=== PATIENT | male | born 1945 | race Caucasian/White ===

== ENCOUNTER 2024-10-15 14:30 | Emergency (ER) | payer MEDICARE, SELFPAY ==
--- NOTE | ~2024-10-15 | CT_ITS ---
EXAMINATION: CT cervical spine wo con DATE: 10/15/2024 15:53 INDICATION: Head injury. Neck pain. TECHNIQUE: Computed tomography (CT) of the cervical spine was performed without intravenous contrast. Automated exposure control and iterative reconstruction technique were employed. The dose-length pro duct was 411.07 mGy-cm. COMPARISON: None FINDINGS: There is 7 degrees levocurvature of cervical spine. There is mild chronic anterior wedging of C7 on T1 vertebral bodies. There is severely decreased disc height at C3-C4, moderately decreased disc height at C4-C5, and severely decreased disc height at C5-C6, C6-C7, and C7-T1. The following di sc levels are specifically discussed: C2-C3: There is moderate right and mild left uncovertebral joint osteoarthritis. There is severe righ t and mild left facet joint osteoarthritis. There is mild right neural foraminal stenosis. There is n o central canal stenosis. C3-C4: There is ankylosis of the uncovertebral joints with severe right hypertrophy and moderate left hypertrophy. There is moderate left facet joint osteoarthritis. There is ankylosis of right facet january int with moderate hypertrophy. There is mild bilateral neural foraminal stenosis. There is mild centr al canal stenosis. C4-C5: There is mild bilateral uncovertebral joint osteoarthritis. There is moderate bilateral facet joint osteoarthritis. There is mild bilateral neural foraminal stenosis. There is mild central canal stenosis. C5-C6: There is severe bilateral uncovertebral joint osteoarthritis. There is moderate right and mild left facet joint osteoarthritis. There is mild bilateral neural foraminal stenosis. There is mild ce ntral canal stenosis. C6-C7: There is mild bilateral uncovertebral joint osteoarthritis. There is mild bilateral facet join t osteoarthritis. There is no neural foraminal stenosis. There is mild central canal stenosis. C7-T1: There is severe bilateral uncovertebral joint osteoarthritis. There is severe bilateral facet joint osteoarthritis. There is mild bilateral neural foraminal stenosis. There is mild central canal stenosis. IMPRESSION: 1. No fracture. 2. Severe cervical spondylosis. Reviewed, dictated and finalized at location A. EKEEPER NANNY
--- NOTE | ~2024-10-15 | XR_ITS ---
EXAMINATION: XR shoulder RT min 2V DATE: 10/15/2024 15:53 INDICATION: Right shoulder pain. Fall. TECHNIQUE: 3 views of right shoulder were obtained. COMPARISON: None. FINDINGS: Alignment is normal. No fracture. There is mild osteoarthritis of glenohumeral joint and ac romioclavicular joint. IMPRESSION: 1. Mild polyarticular osteoarthritis. Reviewed, dictated and finalized at location A. T ADVOCATE
--- NOTE | ~2024-10-15 | XR_ITS ---
EXAMINATION: XR chest 2V DATE: 10/15/2024 15:53 INDICATION: Fall. Weakness. TECHNIQUE: Frontal and lateral views of the chest were obtained. COMPARISON: None. FINDINGS: There are airspace opacities in the lower lung zones. No pleural effusion or pneumothorax. The heart size is normal. IMPRESSION: 1. Airspace opacities in the lower lung zones, consistent with atelectasis/scarring versus pneumonia. Reviewed, dictated and finalized at location A. IC FINISHER IMPRESSION: 1. Airspace opacities in the lower lung zones, consistent with atelectasis/scar ring versus pneumonia.
--- NOTE | ~2024-10-15 | CT_ITS ---
EXAMINATION: CT brain wo con DATE: 10/15/2024 15:53 INDICATION: Head injury. TECHNIQUE: Computed tomography (CT) of the head was performed without intravenous contrast. The mA wa s adjusted according to patient size. Iterative reconstruction technique was employed. The dose-lengt h product was 681.00 mGy-cm. COMPARISON: None FINDINGS: There are old infarcts in the left basal ganglia. There are scattered areas of low attenuat ion in the cerebral white matter, which is within normal limits for the patient's age. There is no in tracranial hemorrhage, acute infarction, or abnormal intracranial mass lesion. The ventricles are nor mal in size. There are likely changes of ocular lens replacement surgeries. There is mucosal thickeni ng in the paranasal sinuses. There is a small left mastoid effusion. IMPRESSION: 1. 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 Reviewed, dictated and finalized at location A. NSIC SPECIALIST
--- NOTE | 2024-10-15 14:32 | ED_ITS ---
HPI - Syncope General Chief Complaint: Syncope Stated Complaint: SYNCOPAL EPISODE Time Seen by Provider: 10/15/24 14:32 Source: patient Mode of arrival: EMS Limitations: no limitations History of Present Illness HPI narrative: Patient is an 79-year-old male with dizziness and syncope prior to arrival. He was picked up by EMS and brought to the emergency room. Patient has chronic dizziness but it appeared worse today and he passed out. He was down for 30 seconds. He sustained injuries to his right shoulder and his scalp right frontal. He is on Xarelto. 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 and they are monitoring the left; this was 6 months ago) and other ( chronic dizziness) Treatments prior to arrival: none Related Data Home Medications Medication Instructions Recorded Confirmed amiodarone 100 mg tablet 100 mg PO DAILY 10/15/24 10/15/24 amlodipine 10 mg tablet 10 mg PO DAILY 10/15/24 10/15/24 atenolol 100 mg tablet 100 mg PO DAILY 10/15/24 10/15/24 finasteride 5 mg tablet 5 mg PO DAILY 10/15/24 10/15/24 losartan 100 mg tablet 100 mg PO DAILY 10/15/24 10/15/24 omeprazole 20 mg capsule,delayed 20 mg PO DAILY 10/15/24 10/15/24 release pravastatin 80 mg tablet 80 mg PO HS 10/15/24 10/15/24 rivaroxaban 20 mg tablet (Xarelto) 20 mg PO DAILY 10/15/24 10/15/24 spironolactone 25 mg tablet 12.5 mg PO DAILY 10/15/24 10/15/24 tamsulosin 0.4 mg capsule 0.4 mg PO DAILY 10/15/24 10/15/24 Allergies Allergy/AdvReac Type Severity Reaction Status Date / Time No Known Allergies Allergy Verified 10/15/24 15:08 Review of Systems Review of Systems: All systems reviewed & are unremarkable except as noted in HPI and below Constitutional: Constitutional: Reports no additional constitutional complaints Eyes: Eyes: Reports no additional eye complaints ENT: Reports system reviewed and no additional complaints, except as documented Cardiovascular: Cardiovascular: Reports no additional cardiovascular complaints Respiratory: Respiratory: Reports no additional respiratory complaints Gastrointestinal: Gastrointestinal: Reports no additional gastrointestinal complaints Genitourinary: Genitourinary: Reports no additional male genitourinary complaints Musculoskeletal: Musculoskeletal: Reports no additional musculoskeletal complaints Integumentary/Breasts: Skin/Breast: Reports system reviewed and no additional complaints, except as docu Neurologic: Reports system reviewed and no additional complaints, except as documented Psychiatric: Psychiatric: Reports no additional psychiatric complaints Endocrine: Endocrine: Reports no additional endocrine complaints Hematologic/Lymphatic: Hematologic/Lymphatic: Reports no additional hematologic/lymphatic complaints Allergic/Immunologic: Allergic/Immunologic: Reports no additional allergic/immunologic complaints Exam Const: General: healthy appearing Nutritional Appearance: well nourished Orientation/consciousness: patient oriented x3 Limitations: no limitations HENMT: Head: normal to inspection Ears: external ears normal Face/Nose/Sinus: Normal external nose present Eyes: Conjunctivae: conjunctivae normal Pupils: Equal, round and reactive pupils present EOM: EOMs intact bilaterally Neck: Neck: normal visual inspection Chest: Chest palpation & inspection: normal inspection of the chest Resp: Effort & Inspection: normal respiratory effort and not labored Auscultation: clear to auscultation bilaterally Cardio: Rate: regular rate Rhythm: regular rhythm Heart sounds: no murmurs GI: Inspection: non-distended GI Palp: Yes Soft to palpation and No Tenderness to palpation present (GI) Auscultation: normal bowel sounds : General: Yes bladder normal to palpation Back/Spine/Pelvis: Back: no CVA tenderness Skin: General skin exam: normal color Rashes: no rashes Wounds: wound noted Other: right frontal scalp has a superficial abrasion with bleeding that has stopped but dry now Neuro: General: patient oriented x3 Cranial nerves: Yes Nystagmus not present Speech: normal speech Gait exam (Neuro): Normal gait present Other: Fast exam is negative, GCS is 15, NIH is 0 Extrem: General: normal to inspection Other: tender right shoulder to palpation and range of motion Psych: Mental Status: mental status grossly normal Affect: normal affect Attitude: cooperative Course Vital Signs Vital signs: Vital Signs Temperature 36.6 C 10/15/24 14:52 Pulse Rate 53 L 10/15/24 14:52 Respiratory Rate 20 10/15/24 14:52 Blood Pressure 153/78 H 10/15/24 14:52 Pulse Oximetry 98 10/15/24 14:52 Oxygen Delivery Room Air 10/15/24 14:52 Temperature 36.5 C 10/15/24 18:54 Pulse Rate 60 10/15/24 18:54 Respiratory Rate 20 10/15/24 18:54 Blood Pressure 121/60 10/15/24 18:54 Pulse Oximetry 100 10/15/24 18:54 Oxygen Delivery Room Air 10/15/24 18:54 MDM - Syncope MDM Narrative Medical decision making narrative: patient is a 79-year-old male with dizziness and then the syncope. We will do a cardiac/ neurologic workup at this time. He probably needs a repeat carotid ultrasound soon. Workup shows dehydration and anemia. We will proceed with transferring to [facility] for GI workup. His stool study was positive for blood. His right shoulder is still causing pain and we discussed MRI as an outpatient for possible rotator cuff injury. X-ray was negative for acute pr ocess. Lab Data Attestation: I reviewed the patient's lab results. 10/15/24 18:43 10/15/24 16:05 Labs: Lab Results 10/15/24 10/15/24 10/15/24 Range/Units 16:05 16:52 17:48 WBC 8.7 (4.8-10.8) K/mm3 RBC 3.82 L (4.70-6.10) M/mm3 Hgb 8.7 L (12.4-15.3) g/dL Hct 28.0 L (37.0-46.0) % MCV 73.3 L (78.0-102.0) fL MCH 22.8 L (27.0-31.0) pg MCHC 31.1 L (32-36) g/dL RDW 15.8 H (11.6-14.4) % Plt Count 295 (150-420) K/mm3 MPV 9.4 (8.7-11.0) fl Immature Gran % (Auto) 0.3 H (0.0-0.0) % Neut % (Auto) 57.6 (50.0-70.0) % Lymph % (Auto) 22.5 (18.0-42.0) % Bailey % (Auto) 9.4 (2.0-11.0) % Eos % (Auto) 9.5 H (1.0-6.0) % Baso % (Auto) 0.7 (0.0-1.0) % Lymph # (Auto) 1.96 (1.10-4.50) K/mm3 Bailey # (Auto) 0.82 (0.10-0.90) K/mm3 Eos # (Auto) 0.83 H (0.02-0.50) K/mm3 Baso # (Auto) 0.06 (0.00-0.10) K/mm3 Abs Immat Gran (auto) 0.03 H (0.00-0.00) K/mm3 Absolute Neuts (auto) 5.02 (1.70-7.20) K/mm3 Absolute Nucleated RBC 0.00 (0.00-0.00) K/mm3 Nucleated RBC % 0.0 (0-0.0) % D-Dimer 0.33 (0.19-0.50) mg/L Sodium 131 L (136-145) mmol/L Potassium 5.1 (3.5-5.1) mmol/L Chloride 99 (98-108) mmol/L Carbon Dioxide 22 (21-32) mmol/L Anion Gap 10 (4-12) mmol/L BUN 36 H (7-18) mg/dL Creatinine 1.64 H (0.70-1.30) mg/dL Estim Creat Clear Calc 39 ml/min Estimated GFR 41 L (59 - ) Glucose 110 H (70-99) mg/dL Calculated Osmolality 281 L (285-295) mOsm/kg Calcium 9.0 (8.5-10.1) mg/dL Total Bilirubin 0.3 (0.00-1.00) mg/dL AST 12 L (15-37) U/L ALT 20 (16-63) U/L Alkaline Phosphatase 53 (46-116) U/L Troponin I 9.2 (0.00-60.4) ng/L Total Protein 7.4 (6.4-8.2) g/dL Albumin 3.4 (3.4-5.0) g/dL Urine Color Light yellow (Yellow) Urine Appearance Clear (Clear) Urine pH 5.5 (5.0-8.0) Ur Specific [place] 1.015 (1.010-1.020) Urine Protein Negative (Negative) Urine Glucose (UA) Negative (Negative) Urine Ketones Negative (Negative) Ur Blood (Man) Negative (Negative) Urine Nitrate Negative (Negative) Urine Bilirubin Negative (Negative) Urine Urobilinogen 0.2 (0.2-1.0) mg/dL Leukocyte Esterase Rfl Negative (Negative) MARIA M/UL Stool Occult Blood Positive A (Negative) 10/15/24 Range/Units 18:43 WBC 8.4 (4.8-10.8) K/mm3 RBC 3.52 L (4.70-6.10) M/mm3 Hgb 8.0 L (12.4-15.3) g/dL Hct 25.7 L (37.0-46.0) % MCV 73.0 L (78.0-102.0) fL MCH 22.7 L (27.0-31.0) pg MCHC 31.1 L (32-36) g/dL RDW 15.8 H (11.6-14.4) % Plt Count 265 (150-420) K/mm3 MPV 9.3 (8.7-11.0) fl Immature Gran % (Auto) (0.0-0.0) % Neut % (Auto) (50.0-70.0) % Lymph % (Auto) (18.0-42.0) % Bailey % (Auto) (2.0-11.0) % Eos % (Auto) (1.0-6.0) % Baso % (Auto) (0.0-1.0) % Lymph # (Auto) (1.10-4.50) K/mm3 Bailey # (Auto) (0.10-0.90) K/mm3 Eos # (Auto) (0.02-0.50) K/mm3 Baso # (Auto) (0.00-0.10) K/mm3 Abs Immat Gran (auto) (0.00-0.00) K/mm3 Absolute Neuts (auto) (1.70-7.20) K/mm3 Absolute Nucleated RBC (0.00-0.00) K/mm3 Nucleated RBC % (0-0.0) % D-Dimer (0.19-0.50) mg/L Sodium (136-145) mmol/L Potassium (3.5-5.1) mmol/L Chloride (98-108) mmol/L Carbon Dioxide (21-32) mmol/L Anion Gap (4-12) mmol/L BUN (7-18) mg/dL Creatinine (0.70-1.30) mg/dL Estim Creat Clear Calc ml/min Estimated GFR (59 - ) Glucose (70-99) mg/dL Calculated Osmolality (285-295) mOsm/kg Calcium (8.5-10.1) mg/dL Total Bilirubin (0.00-1.00) mg/dL AST (15-37) U/L ALT (16-63) U/L Alkaline Phosphatase (46-116) U/L Troponin I (0.00-60.4) ng/L Total Protein (6.4-8.2) g/dL Albumin (3.4-5.0) g/dL Urine Color (Yellow) Urine Appearance (Clear) Urine pH (5.0-8.0) Ur Specific [place] (1.010-1.020) Urine Protein (Negative) Urine Glucose (UA) (Negative) Urine Ketones (Negative) Ur Blood (Man) (Negative) Urine Nitrate (Negative) Urine Bilirubin (Negative) Urine Urobilinogen (0.2-1.0) mg/dL Leukocyte Esterase Rfl (Negative) MARIA M/UL Stool Occult Blood (Negative) Imaging Data Attestation: I personally reviewed and interpreted this imaging study as follows: Radiologist's impression: CT scan of the head was negative for acute process CT scan of the cervical spine was negative for acute process x-ray of the right shoulder was negative for acute process chest x-ray was questionable for bilateral or lower lobe pneumonia versus atelectasis (patient has no symptoms of pneumonia such as shortness of breath or sputum or cough or fever ) ; this is more likely atelectasis ECG Data EKG #1: Attestation: I personally reviewed and interpreted this ECG as follows: ECG completion date: 10/15/24 ECG completion time: 16:40 EKG Interpretation: bradycardia, sinus rhythm, no ectopy, non-specific ST changes, normal QRS, normal QT and NL axis Discharge Plan Discharge Clinical Impression: GI (gastrointestinal bleed), Acute dehydration, Syncope Patient Disposition: Acute Care Hospital Condition: Serious Prescriptions: No Action atenolol 100 mg tablet 100 mg PO DAILY spironolactone 25 mg tablet 12.5 mg PO DAILY pravastatin 80 mg tablet 80 mg PO HS tamsulosin 0.4 mg capsule 0.4 mg PO DAILY amlodipine 10 mg tablet 10 mg PO DAILY omeprazole 20 mg capsule,delayed release(DR/EC) 20 mg PO DAILY losartan 100 mg tablet 100 mg PO DAILY finasteride 5 mg tablet 5 mg PO DAILY amiodarone 100 mg tablet 100 mg PO DAILY Xarelto 20 mg tablet 20 mg PO DAILY Follow-up/Referrals: Tim Harris MD [Primary Care Provider] - Time of Disposition: 19:38
[2024-10-15 14:52] VITALS: BP 153/78; PULSE 53; RESP 20; TEMP 36.6; O2SAT 98
[2024-10-15 15:00] VITALS: O2SAT 98
--- NOTE | 2024-10-15 15:55 | ECG_ITS ---
Test Date: 2024-10-15 16:12:12 Measurements Intervals [place] Rate: 55 P: 56 NH: 237 QRS: 59 QRSD: 101 T: 62 QT: 451 QTc: 434 Interpretive Statements SINUS BRADYCARDIA WITH FIRST DEGREE AV BLOCK No previous ECG available for comparison Electronically Signed On 10-18-2024 20:14:40 SENIOR AIR DIRECTOR by Maximilian Nazario M.D.
[2024-10-15 16:00] VITALS: BP 144/74; PULSE 58; RESP 20; O2SAT 98
[2024-10-15 16:08] LABS: Basophils Absolute Auto 0.06 K/mm3 (0.00-0.10); Basophils Percent Auto 0.7 % (0.0-1.0); Eosinophils Absolute Auto 0.83 K/mm3 (0.02-0.50); Eosinophils Percent Auto 9.5 % (1.0-6.0); Hemoglobin 8.7 g/dL (12.4-15.3); Immature Granulocyte Absolute 0.03 K/mm3 (0.00-0.00); Immature Granulocyte Percent A 0.3 % (0.0-0.0); Lymphocytes Absolute Auto 1.96 K/mm3 (1.10-4.50); Lymphocytes Percent Auto 22.5 % (18.0-42.0); Mean Corpuscular HGB Conc 31.1 g/dL (32-36); Mean Corpuscular Hemoglobin 22.8 pg (27.0-31.0); Mean Corpuscular Volume 73.3 fL (78.0-102.0); Mean Platelet Volume 9.4 fl (8.7-11.0); Monocytes Absolute Auto 0.82 K/mm3 (0.10-0.90); Monocytes Percent Auto 9.4 % (2.0-11.0); Neutrophils Absolute Auto 5.02 K/mm3 (1.70-7.20); Neutrophils Percent Auto 57.6 % (50.0-70.0); Platelet Count Result 295 K/mm3 (150-420); Red Blood Count 3.82 M/mm3 (4.70-6.10); Red Cell Distribution Width 15.8 % (11.6-14.4); White Blood Count 8.7 K/mm3 (4.8-10.8)
[2024-10-15 16:21] LABS: D Dimer 0.33 mg/L (0.19-0.50)
[2024-10-15 16:31] LABS: Alanine Aminotransferase 20 U/L (16-63); Albumin Level 3.4 g/dL (3.4-5.0); Alkaline Phosphatase 53 U/L (46-116); Anion Gap 10 mmol/L (4-12); Aspartate Amino Transferase 12 U/L (15-37); Bilirubin,Total 0.3 mg/dL (0.00-1.00); Blood Urea Nitrogen 36 mg/dL (7-18); Carbon Dioxide 22 mmol/L (21-32); Chloride 99 mmol/L (98-108); Estimated CRCL calculation 39 ml/min; Estimated Glomerular Filt Rate 41; Glucose 110 mg/dL (70-99); Osmolality Calculated 281 mOsm/kg (285-295); Potassium 5.1 mmol/L (3.5-5.1); Sodium 131 mmol/L (136-145); Total Protein 7.4 g/dL (6.4-8.2); Troponin I 9.2 ng/L (0.00-60.4)
[2024-10-15 16:57] LABS: Add Urine Microscopic? NO; Appearance Urine Clear (Clear); Bilirubin Urine Negative (Negative); Blood Urine Negative (Negative); Color Urine Light Yellow (Yellow); Glucose Urine UA Negative (Negative); Ketones Urine Negative (Negative); Leukocyte Esterase Ur Negative LEU/UL (Negative); Nitrate Urine Negative (Negative); Protein Urine Negative (Negative); Specific Grav Ur 1.015 (1.010-1.020); Urobilinogen Urine 0.2 mg/dL (0.2-1.0); pH Urine 5.5 (5.0-8.0)
[2024-10-15 17:00] VITALS: BP 131/71; PULSE 59; RESP 20; O2SAT 99
[2024-10-15] MEDS: SODIUM CHLORIDE 0.9% IV 1,000 ML 999 ML IV CONT (17:48)
[2024-10-15 17:53] LABS: Occult Blood Positive (Negative)
--- NOTE | 2024-10-15 17:53 | PC.NURSE ---
Hemoccult stool sample sent to lab
[2024-10-15 18:46] LABS: Hematocrit 25.7 % (37.0-46.0); Mean Corpuscular HGB Conc 31.1 g/dL (32-36); Mean Corpuscular Hemoglobin 22.7 pg (27.0-31.0); Mean Platelet Volume 9.3 fl (8.7-11.0); Platelet Count Result 265 K/mm3 (150-420); Red Blood Count 3.52 M/mm3 (4.70-6.10); Red Cell Distribution Width 15.8 % (11.6-14.4); White Blood Count 8.4 K/mm3 (4.8-10.8)
[2024-10-15 18:54] VITALS: BP 121/60; PULSE 60; RESP 20; TEMP 36.5; O2SAT 100
[2024-10-15 22:23] VITALS: BP 121/61; PULSE 64; RESP 18; TEMP 36.6; O2SAT 97
[2024-10-15] MEDS: PANTOPRAZOLE SODIUM IV 40 MG VIAL IV PUSH (22:28)
[2024-10-15 22:36] LABS: INR 1.1; Partial Thromboplastin Time 32.8 Sec (23.9-30.70); Prothrombin Time 11.9 Seconds (9.50-12.1)
--- NOTE | 2024-10-15 23:14 | PC.NURSE ---
[facility] said that they would send out their other ambulance to take this pt after they take our other ALS transfer pt to [facility].
--- NOTE | 2024-10-15 23:59 | PC.NURSE ---
pt taken to bathroom via wheelchair
== END 2024-10-16 00:36 | disposition short-term general hospital (02) ==
PROVIDERS: Emergency Provider Emergency Medicine; PCP Family Medicine
DX: K92.2 Gastrointestinal hemorrhage, unspecified (principal); E86.0 Dehydration; R55 Syncope and collapse; Z79.899 Other long term (current) drug therapy; Z79.01 Long term (current) use of anticoagulants
CPT/HCPCS: 36415; 70450; 71046; 72125; 73030; 80053; 81003; 82272; 84484; 85025; 85027; 85380; 85610; 85730; 93005; 96361; 96374; 99285; J2470; J7030